=== PATIENT | female | born 1960 | race African-American/Black ===

== ENCOUNTER 2017-12-08 06:20 | Emergency (ER) | payer OTHER ==
[2017-12-08] MEDS ORDERED: Aspirin 325 MG TAB ONE (06:42)
[2017-12-08] MEDS ORDERED: methylPREDNISolone Sod Succ/PF 125 MG/2 ML VIAL ONE (06:42)
[2017-12-08] MEDS ORDERED: hydrALAZINE 20 MG/ML VIAL ONE (06:42)
[2017-12-08] MEDS ORDERED: Magnesium Sulfate 2 GM/NS 0.9% 50 ML BAG ONE (06:42)
[2017-12-08] MEDS ORDERED: Nitroglycerin 2% Ointment 1 INCH/1 GM Packet ONE (06:42)
[2017-12-08 06:58] LABS: #Basophils 0.1 thou/uL (0.0-0.2); #Eosinphils 0.1 thou/uL (0.0-0.7); #Lymphocytes 2.9 thou/uL (1.20-3.40); #Monocytes 0.8 thou/uL (0.11-0.59); #Neutrophils 8.6 thou/uL (1.40-6.50); %Basophils 0.7 % (0.0-1.0); %Eosinophils 0.8 % (0.0-10.0); %Lymphocytes 23.2 % (21.0-51.0); %Monocytes 6.1 % (0.0-10.0); %Neutrophils 69.1 % (42.0-75.0); Hemoglobin 10.4 g/dL (12.0-16.0); Mean Corpuscular HGB CONC 30.6 g/dL (32.0-36.0); Mean Corpuscular Hemoglobin 25.3 pg (27.0-31.0); Mean Corpuscular Volume 82.6 fL (78.0-98.0); Mean Platelet Volume 9.5 fL (7.4-10.4); Platelet Count 251 thou/uL (130-400); RBC Distribution Width 14.8 % (11.5-14.5); Red Blood Cell (RBC) Count 4.13 mill/uL (4.20-5.40); White Blood Cell (WBC) Count 12.5 thou/uL (4.8-10.8)
[2017-12-08 07:13] LABS: ALT (SGPT) 22 U/L (8-55); AST (SGOT) 26 U/L (5-34); Albumin 2.7 g/dL (3.5-5.0); Alkaline Phosphatase 110 U/L (40-150); Anion Gap 14 mmol/L (10-20); BUN (Urea Nitrogen) 43 mg/dL (9.8-20.1); Bilirubin, Total 0.2 mg/dL (0.2-1.2); CK (CPK) 1938 U/L (29-168); Calc. Creatinine Clearance 0 mL/min (70-130); Calcium 8.4 mg/dL (7.8-10.44); Carbon Dioxide 25 mmol/L (22-29); Chloride 107 mmol/L (98-107); Estimated GFR-MDRD 15; Globulin 3.3 g/dL (2.4-3.5); Glucose 221 mg/dL (70-105); Lipase 8 U/L (8-78); Potassium 3.1 mmol/L (3.5-5.1); Sodium 143 mmol/L (136-145)
[2017-12-08 07:14] LABS: CKMB 3.6 ng/mL (0-6.6)
[2017-12-08] MEDS ORDERED: Nitroglycerin 50 MG/250 ML BOT 250 ML ONE (07:57)
[2017-12-08] MEDS ORDERED: Potassium Chloride 10 MEQ/100 ML PREMIX BAG ONE (07:57)
[2017-12-08] MEDS ORDERED: Enoxaparin Sodium 80 MG/0.8 ML SYRINGE ONE (07:57)
--- NOTE | 2017-12-08 08:27 | RAD ---
CHEST 1 VIEW: HISTORY: Dyspnea. COMPARISON: 01/10/10. FINDINGS: Portable semiupright chest radiograph demonstrates cardiomegaly. T he pulmonary vessels are within no rmal limits. Costophrenic angles are clear. No consolidation or mass. No pneumothorax or osseous a bnormalities. IMPRESSION: 1. Limited evaluation due to motion. There is cardiomegaly without evidence of congestive heart charles lure. 2. Atherosclerosis. POS: RODO
[2017-12-08 08:46] LABS: Bilirubin Negative (Negative); Blood, Urine Moderate (Negative); Clarity Clear (Clear); Glucose, Urine (Dipstick) 250 mg/dL (Negative); Leukocyte Negative (Negative); Nitrite Negative (Negative); Protein, Urine (Dipstick) > or equal to 300 mg/dL (Neg-Trace); Urobilinogen 0.2 mg/dL (0.2-1.0)
[2017-12-08 08:58] LABS: Cocaine Metabolite Screen Not Detected (NotDetected); Methamphetamine Not Detected (NotDetected); Phencyclidine (PCP) Not Detected (NotDetected); THC/Cannabinoid Screen Not Detected (NotDetected)
[2017-12-08 08:59] LABS: Amphetamine Not Detected (NotDetected); Barbiturates Screen Detected (NotDetected); Benzodiazepine Screen Not Detected (NotDetected); Medtox Control Line Valid? VALID (VALID); Methadone Not Detected (NotDetected); Opiate Screen Detected (NotDetected); Oxycodone Screen Not Detected (NotDetected); Tricyclic Screen Not Detected (NotDetected)
[2017-12-08 09:22] LABS: Bacteria/HPF 1+ HPF (None Seen); Other Microscopic Description NO
== END 2017-12-08 08:39 | disposition short-term general hospital (02) ==
LOC: NAV ERS 06:20
DX: J96.90 Respiratory failure, unspecified, unspecified whether with hypoxia or hypercapnia (principal); I13.0 Hypertensive heart and chronic kidney disease with heart failure and stage 1 through stage 4 chronic kidney disease, or unspecified chronic kidney disease; I50.9 Heart failure, unspecified; N18.3 Chronic kidney disease, stage 3 (moderate); N17.9 Acute kidney failure, unspecified; J44.1 Chronic obstructive pulmonary disease with (acute) exacerbation; I16.1 Hypertensive emergency; I21.4 Non-ST elevation (NSTEMI) myocardial infarction; E11.9 Type 2 diabetes mellitus without complications; E78.2 Mixed hyperlipidemia; J44.9 Chronic obstructive pulmonary disease, unspecified; F17.210 Nicotine dependence, cigarettes, uncomplicated; Z79.899 Other long term (current) drug therapy; Z79.4 Long term (current) use of insulin
CPT/HCPCS: 71045; 80053; 80306; 81003; 81015; 82550; 82553; 83605; 83690; 83880; 84443; 84484; 85025; 85379; 93005; 94640; 94660; 94760; 96365; 96367; 96368; 96375; J0360; J1650; J2930; J3475; J3480; J7620

== ENCOUNTER 2023-04-18 20:16 | Emergency (ER) | payer MEDICARE, OTHER ==
[2023-04-18] MEDS ORDERED: Docusate 100 MG CAP ONE ×2 (20:57→21:22)
[2023-04-18] MEDS ORDERED: Docusate Sodium 100 MG/10 ML UDCUP PO SCH (21:15)
== END 2023-04-18 22:02 | disposition home or self-care (01) ==
LOC: NAV ERS 20:16
DX: T82.42XA Displacement of vascular dialysis catheter, initial encounter (principal); K62.89 Other specified diseases of anus and rectum; G89.29 Other chronic pain; R14.0 Abdominal distension (gaseous); N18.6 End stage renal disease; E78.00 Pure hypercholesterolemia, unspecified; F17.210 Nicotine dependence, cigarettes, uncomplicated; E11.22 Type 2 diabetes mellitus with diabetic chronic kidney disease; J44.9 Chronic obstructive pulmonary disease, unspecified; Z79.899 Other long term (current) drug therapy; Z79.01 Long term (current) use of anticoagulants
CPT/HCPCS: 71045; 74018

== ENCOUNTER 2024-12-19 12:44 | Emergency (ER) | payer MEDICARE ==
[2024-12-19] MEDS ORDERED: Ondansetron PF 4 MG/2 ML Vial ONE ×2 (13:36→17:18)
[2024-12-19] MEDS ORDERED: Pantoprazole 40 MG VIAL ONE (13:37)
[2024-12-19 13:55] LABS: AST (SGOT) 22 U/L (11-34); Albumin 3.7 g/dL (3.1-4.5); Alkaline Phosphatase 138 U/L (40-110); Anion Gap 30 mmol/L (10-20); BUN (Urea Nitrogen) 52 mg/dL (9.8-20.1); Bilirubin, Total 0.4 mg/dL (0.3-1.2); Calc. Creatinine Clearance 0 mL/min (70-130); Calcium 8.6 mg/dL (7.8-10.44); Carbon Dioxide 19 mmol/L (23-31); Chloride 91 mmol/L (98-107); Globulin 4.1 g/dL (2.4-3.5); Glucose 116 mg/dL (80-115); Lipase 442 U/L (8-78); Potassium 3.2 mmol/L (3.5-5.1); Sodium 137 mmol/L (136-145)
[2024-12-19 13:59] LABS: #Basophils 0.1 thou/uL (0.0-0.2); #Eosinophils 0.0 thou/uL (0.0-0.7); #Lymphocytes 1.8 thou/uL (1.20-3.40); #Monocytes 1.0 thou/uL (0.11-0.59); #Neutrophils 12.4 thou/uL (1.40-6.50); %Basophils 0.5 % (0.0-1.0); %Eosinophils 0.1 % (0.0-10.0); %Lymphocytes 12.0 % (21.0-51.0); %Monocytes 6.4 % (0.0-10.0); %Neutrophils 81.1 % (42.0-75.0); Hematocrit 49.1 % (36.0-47.0); Hemoglobin 15.1 g/dL (12.0-16.0); Mean Corpuscular Hemoglobin 26.7 pg (27.0-31.0); Mean Corpuscular Volume 86.7 fl (78.0-98.0); Platelet Count 379 10x3/uL (130-400); Red Blood Cell (RBC) Count 5.67 mill/uL (4.20-5.40); White Blood Cell (WBC) Count 15.2 10x3/uL (4.8-10.8)
[2024-12-19 14:11] LABS: ALT (SGPT) 10 U/L (Less than 34)
[2024-12-19 15:48] LABS: Cardiac Risk 6.8 (Less than 4.5); Cholesterol 164.0 mg/dl (< 200 Desired); HDL Cholesterol 24.0 mg/dL (>60 Neg Risk); LDL Cholesterol, Calculated 109.0 mg/dL; Triglycerides 154.0 mg/dL (Less than 150)
== END 2024-12-19 18:10 | disposition short-term general hospital (02) ==
LOC: NAV ERS 12:44
DX: K85.90 Acute pancreatitis without necrosis or infection, unspecified (principal); I12.0 Hypertensive chronic kidney disease with stage 5 chronic kidney disease or end stage renal disease; N18.6 End stage renal disease; E11.22 Type 2 diabetes mellitus with diabetic chronic kidney disease; J44.9 Chronic obstructive pulmonary disease, unspecified; E78.00 Pure hypercholesterolemia, unspecified; F17.210 Nicotine dependence, cigarettes, uncomplicated; Z79.899 Other long term (current) drug therapy; Z79.51 Long term (current) use of inhaled steroids; Z79.82 Long term (current) use of aspirin; Z99.2 Dependence on renal dialysis
CPT/HCPCS: 74176; 80053; 80061; 83690; 85025; 96361; 96374; 96375; 96376; J2272; J2470; J7030; J7042

== ENCOUNTER 2024-12-29 16:55 | Emergency (ER) | payer MEDICARE | END 2024-12-29 18:38 | disposition home or self-care (01) | LOC: NAV ERS 16:55 | DX: S40.011A Contusion of right shoulder, initial encounter (principal); S00.83XA Contusion of other part of head, initial encounter; S00.11XA Contusion of right eyelid and periocular area, initial encounter; E11.22 Type 2 diabetes mellitus with diabetic chronic kidney disease; I12.0 Hypertensive chronic kidney disease with stage 5 chronic kidney disease or end stage renal disease; N18.6 End stage renal disease; J44.9 Chronic obstructive pulmonary disease, unspecified; F17.210 Nicotine dependence, cigarettes, uncomplicated; E78.00 Pure hypercholesterolemia, unspecified; Z79.82 Long term (current) use of aspirin; Z79.899 Other long term (current) drug therapy; Z99.2 Dependence on renal dialysis; W06.XXXA Fall from bed, initial encounter | CPT/HCPCS: 70450; 70486 ==